=== PATIENT | female | born 1970 | race African-American/Black ===

== ENCOUNTER 2016-08-14 05:24 | Day surgery (SDC) | payer OTHER ==
[2016-08-02 14:35] VITALS: BMI 31.0
[2016-08-14] MEDS ORDERED: MIDAZOLAM HCL 2 MG/2 ML SINGLE DOSE VIAL ONE (11:36)
[2016-08-14] MEDS ORDERED: DEXAMETHASONE SOD PHOSPHATE 4 MG/1 ML VIAL ONE ×2 (11:55→12:23)
[2016-08-14] MEDS ORDERED: LIDOCAINE HCL/PF 2% SDV 5ML VIAL ONE (11:58)
[2016-08-14] MEDS ORDERED: PROPOFOL 20 ML ONE (11:58)
[2016-08-14] MEDS ORDERED: ROCURONIUM BROMIDE 50 MG/5 ML VIAL ONE (11:59)
[2016-08-14] MEDS ORDERED: ceFAZolin SODIUM 1 GM VIAL IVPB ONE (12:13)
[2016-08-14] MEDS ORDERED: ceFAZolin SODIUM 1 GM VIAL ONE (12:13)
[2016-08-14] MEDS ORDERED: NEOSTIGMINE METHYLSULFATE 0.5 MG/ML - 10 ML MDV ONE (12:23)
[2016-08-14] MEDS ORDERED: GLYCOPYRROLATE 0.2 MG/1 ML VIAL ONE (12:23)
--- NOTE | 2016-08-14 13:02 | OP ---
Operative Note - Note: Operative Date: 08/14/16 Operation: Laparoscopic bilateral salpingectomy and left ovarian cystectomy Post-Operative Diagnosis: Same as Pre-op Surgeon: Simran Roldan Band Scroll Saw Operator: Roberth Mcgovern Anesthesiologist/FASHION DIRECTOR: Shankar Prado Anesthesia: General Specimens Removed: bilateral tubes and left ovarian cyst Estimated Blood Loss (mls): 5 Fluid Volume Replaced (mls): 700 Operative Report Dictated: Yes
--- NOTE | 2016-08-14 13:03 | SURG ---
Surgery Disabilities Services Officer Note Disabilities Services Officer: Roberth Mcgovern PA-C Date of Service: 08/14/16 Procedure: Laparoscopic bilateral salpingectomy and left ovarian cystectomy I was present for the entirety of the operative procedure. For further detail, please refer to operative report. Visit type - Case Type Case Type: Scheduled Admission - New patient This patient is new to me today: Yes Date on this admission: 08/14/16
[2016-08-14] MEDS ORDERED: ACETAMINOPHEN 1000 MG/100 ML VIAL (NON FORMULARY) IVPB ONE (13:06)
[2016-08-14] MEDS ORDERED: ONDANSETRON 4 MG/2 ML VIAL IVPUSH PRN (13:08)
[2016-08-14] MEDS ORDERED: oxyCODONE HCL 5 MG TABLET PO PRN (13:08)
[2016-08-14] MEDS ORDERED: LACTATED RINGERS SOLUTION 1,000 ML IV SCH (13:15)
[2016-08-14] MEDS ORDERED: oxyCODONE HCL 5 MG TABLET ONE (14:49)
[2016-08-14 15:43] VITALS: BP 130/78; PULSE 63; TEMP 98.4
--- NOTE | 2016-08-16 14:18 | PATH ---
Surgical Pathology Report Patient Name: ADITHYA GARCIA [facility]. Rec. #: [id number] /Age/Gender: 1970 (Age: 46) / F Account: [id number] Location: [facility] SURGICAL Taken: 08/15/2016 Received: 08/15/2016 Reported: 08/16/2016 Physicians: Simran Roldan M.D. Specimen(s) Received A: LEFT FALLOPIAN TUBE B: RIGHT FALLOPIAN TUBE C: LEFT OVARIAN CYST Clinical History Voluntary sterilization Ovarian cyst Final Diagnosis A. FALLOPIAN TUBE, LEFT, SALPINGECTOMY: BENIGN FALLOPIAN TUBE WITH COMPLETE CROSS SECTION AND FOCAL FIBROVASCULAR ADHESIONS. B. FALLOPIAN TUBE, RIGHT, SALPINGECTOMY: BENIGN FALLOPIAN TUBE WITH COMPLETE CROSS SECTION AND FOCAL FIBROVASCULAR ADHESIONS. C. OVARY, LEFT, CYSTECTOMY: OVARY WITH CORPUS LUTEUM CYST; BACKGROUND FOCAL CYSTIC FOLLICLES. Electronically Signed Ld Barrera M.D. Gross Description A. Received in formalin labeled "left fallopian tube" is a 4 cm in length fimbriated portion of fallopian tube. The outer surface is chandra barker with focal attached adipose tissue at the fimbria. Sectioning reveals an unremarkable lumen. Category Specialist sections are submitted in 2 cassettes as follows: 1-fimbria; 2-cross sections of fallopian tube. B. Received in formalin labeled "right fallopian tube" is a 4.5 cm in length fimbriated portion of fallopian tube. The outer surface is chandra-eid and smooth. Sectioning reveals an unremarkable lumen. Category Specialist sections are submitted in 2 cassettes as follows: 1-fimbria; 2-cross sections of fallopian tube. C. Received in formalin labeled "left ovarian cyst" is a 2.2 x 1.5 x 0.4 cm aggregate of chandra-yellow soft tissue fragments, possibly consistent with portions of an ovarian cyst. The specimen is entirely submitted in one cassette. 08/15/201608/15/2016
--- NOTE | 2016-08-29 19:18 | OP ---
DATE OF OPERATION: 08/14/2016 PREOPERATIVE DIAGNOSIS: A voluntary sterilization. OPERATION: Laparoscopic bilateral salpingectomy and left ovarian cystectomy. POSTOPERATIVE DIAGNOSIS: A voluntary sterilization. SURGEON: Simran Roldan M.D. OPTOMECHANICAL ENGINEER: Shalini Mosher SPECIMEN: Removed bilateral fallopian tubes and left ovarian cyst. ESTIMATED BLOOD LOSS: 5 mL DESCRIPTION OF PROCEDURE: Patient was taken to operating room, placed in dorsal lithotomy position, prepped and draped in usual sterile fashion. A timeout was done in accordance with hospital regulation. Lynne catheter is placed into the bladder. Attention was then drawn to the umbilicus where a 5-mm umbilical incision was made. Veress needle was inserted to the cavity. Approximately 3 to 4 L of CO2 was insufflated in the cavity. A 5-mm trocar was then inserted after Veress needle had been removed. Trocars were placed on the left and right side in the lower abdomen. Examination of the abdomen showed normal fallopian tubes, and left ovarian cyst. Grasper then used to grasp the left tube, and the Ligasure was then used to coagulate and cut the fallopian tube away from the uterus. Same procedure was repeated on the right side. Attention was then drawn to the ovarian cyst where a left ovarian cyst was noted. Cautery was then used to enter the cyst and cyst wall was then removed from the ovary. Specimen was submitted to pathology, hemostasis was achieved. Examination of the abdomen revealed normal appendix, no other findings. Right ovary was noted to be normal. Uterus was noted to be normal. After surveillance of the abdomen hemostatis was seen so trocars were then removed from the abdomen after CO2 was removed, and all instruments were removed. Incisions were then closed using 4-0 Biosyn in subcuticular fashion. Wound was washed and dressed. Patient tolerated procedure well. Estimated blood loss 5 mL. SIMRAN ROLDAN M.D. [id number] MTDD
== END 2016-08-14 16:00 | disposition home or self-care (01) ==
LOC: JASU-SURG 05:24
PROVIDERS: ATTEND Obstetrics & Gynecology
PROC: 0UB74ZZ Excision of Bilateral Fallopian Tubes, Percutaneous Endoscopic Approach (ICD-10-PCS; principal; 2016-08-14 11:30)
PROC: 0UB14ZZ Excision of Left Ovary, Percutaneous Endoscopic Approach (ICD-10-PCS; 2016-08-14 11:30)
DX: Z30.2 Encounter for sterilization (principal); N83.202 Unspecified ovarian cyst, left side
CPT/HCPCS: 36415; 84702; 86850; 86900; 86901; 88302-TC; 88305-TC; 94760